=== PATIENT | male | born 1980 | race Caucasian/White ===

== ENCOUNTER 2017-07-14 16:57 | Emergency (ER) | payer SELFPAY ==
[~2017-07-14] VITALS: Ht 165.1 cm; Wt 82.7 kg
[2017-07-14 16:59] VITALS: Ht 165.1 cm; Wt 82.7 kg
--- NOTE | 2017-07-14 18:35 | RADRPT ---
PROCEDURE: Chest x-ray CLINICAL INDICATION: Chest pain TECHNIQUE: Chest single view COMPARISON: 02/01/2014 FINDINGS: The heart is normal in size. The pulmonary vessels are normal in caliber. The lungs are clear. Th e costophrenic angles are sharp. The visualized bony thorax is unremarkable. IMPRESSION: No acute cardiopulmonary disease. RPTAT: HH .Billy Solorio MD, Date Time Electronically viewed and signed by .Billy Solorio MD, MD on 07/14/2017 18:35 .W/
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
== END 2017-07-14 23:00 | disposition left against medical advice (07) ==
LOC: FTE 16:57
DX: G93.9 Disorder of brain, unspecified (principal); R07.9 Chest pain, unspecified
CPT/HCPCS: 70450; 70551; 71010